=== PATIENT | male | born 1960 | race African-American/Black ===

== ENCOUNTER 2017-07-13 13:09 | Observation (INO) | payer OTHER ==
[~2017-07-13] VITALS: Ht 185.4 cm; Wt 96.6 kg
[2017-07-13 14:30] LABS: HEMATOCRIT 40.6 % (38.0-50.0); HEMOGLOBIN 13.9 G/DL (12.5-16.6); MCH 31.5 PG (29.0-34.0); MCHC 34.2 G/DL (30.0-36.0); MCV 92.1 FL (86-99); PLATELET COUNT 229 K/uL (156-360); RBC DIS.WIDTH-CV 13.2 % (11.8-14.6); RBC DIS.WIDTH-SD 45.1 % (39-53); RED BLOOD COUNT 4.41 M/uL (4.00-5.50); WHITE BLOOD COUNT 6.9 K/uL (4.1-10.2)
[2017-07-13 14:39] LABS: CHLORIDE 106 mEq/L (99-109); POTASSIUM 4.6 mEq/L (3.7-5.4); SODIUM 136 mEq/L (136-147)
[2017-07-13 14:41] LABS: GLUCOSE 97 mg/dL (70-99)
[2017-07-13 14:45] LABS: CREATININE 1.2 mg/dL (0.6-1.3)
[2017-07-13 14:46] LABS: UREA NITROGEN (BUN) 19 mg/dL (9-23)
[2017-07-13 14:49] LABS: GFR ESTIMATE (CALCULATED) > 59 mL/min/ (58.99-99999)
[2017-07-13 21:51] VITALS: BP 123/68
[2017-07-13] MEDS ORDERED: XANAX1 MG PO (22:18)
[2017-07-13] MEDS ORDERED: LANSOPRAZOLE15 MG PO (22:19)
[2017-07-14] VITALS (7 sets, daily range): BP systolic 120–222; BP diastolic 61–110
[2017-07-14 03:35] LABS: BASOPHIL (%) 0.5 % (0-1); EOSINOPHIL (%) 1.5 % (0-5); EOSINOPHIL COUNT 0.1 K/uL (0-0.3); HEMATOCRIT 35.7 % (38.0-50.0); HEMOGLOBIN 12.3 G/DL (12.5-16.6); IMMATURE GRANULOCYTE (%) 0.2 % (0.0-0.7); LYMPHOCYTE (%) 46.3 % (15-42); LYMPHOCYTE COUNT 2.5 K/uL (1.0-2.8); MCH 31.8 PG (29.0-34.0); MCHC 34.5 G/DL (30.0-36.0); MCV 92.2 FL (86-99); MONOCYTE (%) 6.2 % (3-12); MONOCYTE COUNT 0.3 K/uL (0-0.8); NEUTROPHIL (%) 45.3 % (45-76); NEUTROPHIL COUNT 2.5 K/uL (1.8-6.4); PLATELET COUNT 201 K/uL (156-360); RBC DIS.WIDTH-CV 13.5 % (11.8-14.6); RBC DIS.WIDTH-SD 45.8 % (39-53); RED BLOOD COUNT 3.87 M/uL (4.00-5.50); WHITE BLOOD COUNT 5.5 K/uL (4.1-10.2)
[2017-07-14 03:44] LABS: ALBUMIN 3.6 g/dL (3.2-4.8); CHLORIDE 107 mEq/L (99-109); SODIUM 139 mEq/L (136-147)
[2017-07-14 03:46] LABS: GLUCOSE 92 mg/dL (70-99); TOTAL PROTEIN 5.8 g/dL (6.4-8.3)
[2017-07-14 03:48] LABS: TOTAL BILIRUBIN 0.5 mg/dL (0.0-1.0)
[2017-07-14 03:50] LABS: ALKALINE PHOSPHATASE 46 IU/L (3-129); CREATININE 1.2 mg/dL (0.6-1.3); GFR ESTIMATE (CALCULATED) > 59 mL/min/ (58.99-99999)
[2017-07-14 03:51] LABS: UREA NITROGEN (BUN) 17 mg/dL (9-23)
[2017-07-14 03:52] LABS: AST (GOT) 15 IU/L (2-34)
[2017-07-14 03:53] LABS: ALT (GPT) 16 IU/L (3-49)
[2017-07-14 03:55] LABS: TROP-I INTERPRETATION NEGATIVE; TROPONIN-I < 0.01 ng/mL (0.0-0.30)
[2017-07-14 09:56] LABS: TROP-I INTERPRETATION NEGATIVE; TROPONIN-I < 0.01 ng/mL (0.0-0.30)
[2017-07-14 16:02] LABS: TROP-I INTERPRETATION NEGATIVE; TROPONIN-I < 0.01 ng/mL (0.0-0.30)
[2017-07-15 03:44] VITALS: BP 118/70
[2017-07-15 07:48] VITALS: BP 126/90
[2017-07-15 12:05] VITALS: BP 196/106
[2017-07-15 12:36] VITALS: BP 139/88
[2017-07-15] MEDS ORDERED: VENTOLIN HFA18 GM IH (12:39)
[2017-07-15] MEDS ORDERED: INDOCIN50 MG PO (12:39)
[2017-07-15] MEDS ORDERED: LISINOPRIL10 MG PO (14:34)
[2017-07-15 16:17] VITALS: BP 131/67
[2017-07-15] MEDS ORDERED: PROTONIX40 MG PO (17:16)
== END 2017-07-15 18:39 | disposition home or self-care (01) ==
LOC: EME 13:09 → EDOF 20:36 → 5WEST 20:36 → ENRESERV 20:41 → 5WEST 21:26
PROVIDERS: Physician Assistant
DX: R10.13 Epigastric pain (principal); R55 Syncope and collapse; M54.2 Cervicalgia; R42 Dizziness and giddiness; Z86.010 Personal history of colon polyps; I10 Essential (primary) hypertension; M10.9 Gout, unspecified; Z79.1 Long term (current) use of non-steroidal anti-inflammatories (NSAID); R63.4 Abnormal weight loss; R53.1 Weakness; Z80.0 Family history of malignant neoplasm of digestive organs; Z91.19 Patient's noncompliance with other medical treatment and regimen; Z91.14 Patient's other noncompliance with medication regimen; Z87.891 Personal history of nicotine dependence; F10.11 Alcohol abuse, in remission; F12.11 Cannabis abuse, in remission
CPT/HCPCS: 71046; 74183; 78227; 80048; 80053; 84484; 85025; 85027; 93005; 93306; 94640; A9537; C9113; G0378; J1644; J2405; J7030